=== PATIENT | female | born 1980 | race Caucasian/White ===

== ENCOUNTER 2019-06-02 13:09 | Emergency (ER) | payer BC, OTHER ==
[2019-06-02] MEDS ORDERED: Sodium Chloride 0.9% 10 ML Syringe FLUSH PRN (13:43)
[2019-06-02] MEDS ORDERED: Ondansetron 4 MG/2 ML SDV IVPUSH ONE (13:43)
[2019-06-02] MEDS ORDERED: methylPREDNISolone Sodium Succinate 125 MG/2 ML SDV IVPUSH ONE (13:43)
[2019-06-02] MEDS ORDERED: Metoclopramide 10 MG/2 ML SDV IVPUSH ONE (14:43)
--- NOTE | 2019-06-02 14:51 | EDM.PDOC ---
ED HPI GENERAL MEDICAL PROBLEM - General Chief Complaint: Neurological Problem Stated Complaint: VERTIGO Time Seen by Provider: 06/02/19 13:26 Source of Information: Reports: Patient, RN Notes Reviewed - History of Present Illness INITIAL COMMENTS - FREE TEXT/NARRATIVE: 38 year old female comes in with severe vertigo. This came on fairly suddenly about 3 hrs ago. She has been having frequent episodes of this nature for the last few months. She has seen ENT and Neurology for this and has been diagnosed with Migraine vertigo. The vertigo is worse with motion. She has had nausea and vomiting. No recent sinus or ear pain. She does have tinnitis that comes and goes. Today's sx are similar to what she has had in the recent past. - Related Data Allergies Allergy/AdvReac Type Severity Reaction Status Date / Time No Known Allergies Allergy Verified 06/02/19 13:24 Home Meds: Home Meds atorvaSTATin Calcium [Lipitor] 20 mg PO DAILY 06/02/19 [History] Past Medical History - Past Health History Medical/Surgical History: Denies Medical/Surgical History Cardiovascular History: Reports: High Cholesterol Social & Family History - Tobacco Use Smoking Status *Q: Never Smoker ED ROS GENERAL - Review of Systems Review Of Systems: See Below Constitutional: Denies: Fever, Chills, Diaphoresis HEENT: Reports: Vertigo. Denies: Ear Pain, Eye Pain, Sinus Problem, Throat Pain , Vision Change Respiratory: Denies: Shortness of Breath Cardiovascular: Denies: Chest Pain GI/Abdominal: Reports: Nausea, Vomiting. Denies: Abdominal Pain Musculoskeletal: Denies: Neck Pain, Shoulder Pain, Arm Pain Skin: Reports: No Symptoms Neurological: Reports: Dizziness. Denies: Numbness, Tingling, Trouble Speaking , Weakness ED EXAM, DIZZINESS - Physical Exam Exam: See Below General Appearance: Alert, Moderate Distress Ears: Normal External Exam, Normal Canal Nose: Normal Inspection Throat/Mouth: Normal Inspection, Normal Oropharynx Head Exam: Atraumatic. No: Facial Swelling Vertigo: reproducible Neck: Supple, Full Range of Motion. No: Lymphadenopathy (L), Lymphadenopathy (R ) Respiratory/Chest: No Respiratory Distress, Lungs Clear, Normal Breath Sounds Cardiovascular: Regular Rate, Rhythm GI/Abdominal: Soft, Non-Tender Neurological: Alert, No Motor/Sensory Deficits, Oriented x 3 Extremities: Normal Inspection, Normal Range of Motion Skin Exam: Warm, Dry, Normal Color, No Rash Course - Vital Signs Last Recorded V/S: Last Vital Signs Temp 98.1 F 06/02/19 13:24 Pulse 85 06/02/19 13:24 Resp 18 06/02/19 13:24 BP 112/60 06/02/19 13:24 Pulse Ox 100 06/02/19 13:24 - Orders/Labs/Meds Orders: Active Orders 24 hr Category Date Time Status Peripheral IV Care [RC] . DIRECTED Care 06/02/19 13:43 Active Peripheral IV Insertion Adult [OM.PC] Stat Oth 06/02/19 13:43 Ordered Meds: Medications Discontinued Medications Generic Name Dose Route Start Last Admin Trade Name Freq PRN Reason Stop Dose Admin Diazepam 2 mg 06/02/19 13:43 06/02/19 14:15 Valium IVPUSH 06/02/19 13:44 2 mg ONETIME ONE Administration Methylprednisolone Sodium Succinate 125 mg 06/02/19 13:43 06/02/19 14:17 Solu-Medrol IVPUSH 06/02/19 13:44 125 mg ONETIME ONE Administration Metoclopramide HCl 5 mg 06/02/19 14:43 06/02/19 14:59 Reglan IVPUSH 06/02/19 14:44 Not Given ONETIME ONE Ondansetron HCl 4 mg 06/02/19 13:43 06/02/19 14:16 Zofran IVPUSH 06/02/19 13:44 4 mg ONETIME ONE Administration Prednisone 40 mg 06/02/19 15:01 Prednisone PO 06/02/19 15:02 ONETIME ONE Sodium Chloride 10 ml 06/02/19 13:43 06/02/19 14:17 Saline Flush FLUSH 10 ml ASDIRECTED PRN Administration Keep Vein Open - Re-Assessments/Exams Free Text/Narrative Re-Assessment/Exam: 06/02/19 20:22 Feeling much better after IV zofran, solumedrol, valium. discharge instr. as documented. 06/02/19 20:22 Departure - Departure Time of Disposition: 15:01 Disposition: Home, Self-Care 01 Condition: Fair Clinical Impression: Migraine, Vertigo - Discharge Information Instructions: Vertigo, Edps-an-Eqyw Referrals: Ino Head PA [Primary Care Provider] - Forms: ED Department Discharge Additional Instructions: rest, move slowly and carefully, clear liquids for now, than bland diet as tolerated. Prednisone 40 mg this evening and than continue prednisone 40 mg q am for the next 6 days. Follow up with your provider as needed, return to ED as needed. - My Orders Last 24 Hours: My Active Orders 06/02/19 13:43 Peripheral IV Care [RC] . DIRECTED Peripheral IV Insertion Adult [OM.PC] Stat - Assessment/Plan Last 24 Hours: My Active Orders 06/02/19 13:43 Peripheral IV Care [RC] . DIRECTED Peripheral IV Insertion Adult [OM.PC] Stat
[2019-06-02] MEDS ORDERED: predniSONE 20 MG Tab PO ONE (15:01)
== END 2019-06-02 15:11 | disposition home or self-care (01) ==
LOC: JD.ED 13:09
DX: G43.909 Migraine, unspecified, not intractable, without status migrainosus (principal); R42 Dizziness and giddiness; E78.00 Pure hypercholesterolemia, unspecified; Z79.899 Other long term (current) drug therapy
CPT/HCPCS: 96374; 96375; 99283; J2405; J2930; J3360